=== PATIENT | male | born 1955 | race Caucasian/White ===

== ENCOUNTER → 2019-01-08 08:41 | Outpatient (CLI) | payer SELFPAY ==
--- NOTE | 2019-01-08 09:15 | MRI_ITS ---
STUDY: MRI BRAIN WITH AND WITHOUT CONTRAST REASON FOR EXAM: Male, 63 years old. Insomnia, depression, bipolar, rule out frontal temporal disorder. TECHNIQUE: Standardized multiplanar fat and water weighted pulse sequences were obtained. IV Dotarem 15 was administered for the contrast portion of the examination. COMPARISON: None. FINDINGS: Normal size of the ventricles and extra-axial spaces for the patient's age. Normal white matter tracts of the supratentorial brain. Normal bilateral basal ganglia. Normal thalami. There is no extra-axial fluid accumulation. Normal flow voids within the major intracranial circulation suggesting patency by spin echo criteria. Normal venous enhancement. There is no enhancing intra-axial or extra-axial abnormality. Normal sella turcica, pituitary gland, infundibular stalk, optic chiasm and hypothalamus. Normal tectal plate and pineal gland. Normal midbrain, baron and medulla. Normal cerebellum. Normal basal cisterns. There is mild fusion of the right mastoid air cells. Normal bilateral internal auditory canals. No demonstrated orbital abnormality, within the constraints of a routine brain study. Normal visualized paranasal sinuses. Normal calvarium and skull base. Normal visualized soft tissue structures. Normal visualized upper cervical spine. MRI/Brain W/WO Contrast IMPRESSION: 1. No evidence of acute intracranial bleed, mass or ischemia. No evidence of abnormal enhancement. Right mastoid small effusion, clinically correlate for congestive versus inflammatory process. Electronically Signed: Shoaib Calvillo DO at 11:48 EDT , Service support ,
== END ==
DX: F51.04 Psychophysiologic insomnia (principal); F31.81 Bipolar II disorder
CPT/HCPCS: 70553; A9575